=== PATIENT | female | born 1990 | race Caucasian/White ===

== ENCOUNTER 2020-01-25 15:15 | Outpatient (CLI) | payer OTHER ==
[2020-01-26 17:39] LABS: Follicle Stimulating Hormone 4.77 mIU/mL (See Ranges); Luteinizing Hormone 3.26 mIU/mL (See Ranges)
== END 2020-01-25 15:16 | disposition home or self-care (01) ==
LOC: MADLAB 15:15
PROVIDERS: ATTEND Internal Medicine Endocrinology, Diabetes & Metabolism
DX: E22.1 Hyperprolactinemia (principal)
CPT/HCPCS: 36415; 82670; 83001; 83002; 84146